=== PATIENT | female | born 1995 | race African-American/Black ===

== ENCOUNTER 2017-01-29 14:06 | Emergency (ER) | payer BC ==
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
[~2017-01-29 14:06] MED LIST: BENTYL20 M1 PO; DESYREL50 MG PO; EC-NAPROSYN500 MG PO; MULTI-DAY VITAM1 TAB PO; NEPHROCAPS1 CAP DOB; PEPCID AC20 M2 PO; PHENERGAN25 M1 DOB; PHENERGAN25 M1 PO; VOLTAREN75 MG PO; ZOLOFT100 MG PO; ZYRTEC10 M1 PO
[2017-01-29 16:08] LABS: BASOPHIL# 0.1 X10e3 (0-0.3); EOSINOPHIL% 0.2 % (0.0-7.0); HEMATOCRIT 41.6 % (35.0-45.0); HEMOGLOBIN 13.7 gm/dL (12.0-16.0); LYMPHOCYTE# 2.8 X10e3 (1.0-3.5); LYMPHOCYTE% 25.4 % (17.0-45.0); MEAN CELL VOLUME 93.1 FL (83-96); MEAN CORPUSCULAR HEMOGLOBIN 30.6 PG (28-34); MEAN CORPUSCULAR HGB CONC 32.8 g/dL (30-36); MEAN PLATELET VOLUME 8.2 FL (6.5-11.5); MONOCYTE# 0.9 X10e3 (0-1.0); MONOCYTE% 7.8 % (3.0-12.0); NEUTROPHIL# 7.3 X10e3 (1.5-7.1); NEUTROPHIL% 65.6 % (40-75); PLATELET COUNT 252 X10e3 (140-420); RED BLOOD COUNT 4.47 X10e (3.90-5.30); RED CELL DISTRIBUTION WIDTH 16.6 % (11.0-15.5); WHITE BLOOD COUNT 11.1 X10e3 (4.0-10.5)
[2017-01-29 16:10] LABS: DIFF IND NO
[2017-01-29 16:34] LABS: BUN/CREATININE RATIO 17.5; CREATININE SERUM 0.8 mg/dL (0.6-1.4); GLOM FILT RATE Estimated 122.3 mL/min (>60)
[2017-01-29 17:30] LABS: URINE SOURCE CLEAN CATCH
[2017-01-29 17:32] LABS: URINE APPEARANCE CLEAR; URINE BILIRUBIN NEG (NEG); URINE BLOOD TRACE-LYSED (NEG); URINE COLOR YELLOW; URINE GLUCOSE NEG (NORM); URINE KETONE TRACE (NEG); URINE LEUKOCYTE ESTERASE NEG (NEG); URINE NITRATE NEG (NEG); URINE PROTEIN NEG (NEG); URINE SPECIFIC GRAVITY <=1.005 (1.003-1.035)
[2017-01-29 17:34] LABS: MICRO INDICATED? YES
[2017-01-29 17:57] LABS: CULTURE INDICATED? NO; URINE BACTERIA NEG (NEG); URINE RBC 0-2 /[HPF] (0-2); URINE WBC 0-2 /[HPF] (0-5)
== END 2017-01-29 19:38 | disposition home or self-care (01) ==
LOC: SED 14:06
PROVIDERS: Physician Assistant
DX: S09.90XA Unspecified injury of head, initial encounter (principal); S29.012A Strain of muscle and tendon of back wall of thorax, initial encounter; S60.222A Contusion of left hand, initial encounter; S20.211A Contusion of right front wall of thorax, initial encounter; R11.2 Nausea with vomiting, unspecified; E16.2 Hypoglycemia, unspecified; E87.6 Hypokalemia; F17.210 Nicotine dependence, cigarettes, uncomplicated; Y08.89XA Assault by other specified means, initial encounter
CPT/HCPCS: 36415; 70450; 70498; 71020; 72072; 80048; 81003; 84703; 85025; 99284; Q9967